=== PATIENT | female | born 1955 | race Caucasian/White ===

== ENCOUNTER → 2023-09-21 10:09 | Outpatient (REF) | payer MEDICARE, SELFPAY | LOC: REG 10:09 | PROVIDERS: ATTENDING PHYSICIAN Internal Medicine | DX: R73.01 Impaired fasting glucose (principal) | CPT/HCPCS: 36415; 83036 ==

== ENCOUNTER → 2024-03-02 13:17 | Outpatient (REF) | payer MEDICARE, SELFPAY | LOC: HWWDC 13:17 | PROVIDERS: ATTENDING PHYSICIAN Internal Medicine | DX: Z12.31 Encounter for screening mammogram for malignant neoplasm of breast (principal) | CPT/HCPCS: 77063; 77067 ==

== ENCOUNTER → 2024-05-12 14:08 | Outpatient (REF) | payer MEDICARE, SELFPAY | LOC: RAD 14:08 | PROVIDERS: ATTENDING PHYSICIAN Internal Medicine; REFERRING PHYSICIAN Physician Assistant Surgical | DX: M54.14 Radiculopathy, thoracic region (principal) | CPT/HCPCS: 72072 ==

== ENCOUNTER → 2024-09-14 13:38 | Outpatient (REF) | payer MEDICARE, SELFPAY | LOC: EMG 13:38 | PROVIDERS: ATTENDING PHYSICIAN Internal Medicine | DX: G56.02 Carpal tunnel syndrome, left upper limb (principal); R20.0 Anesthesia of skin | CPT/HCPCS: 95886; 95909 ==

== ENCOUNTER → 2024-10-27 15:26 | Outpatient (REF) | payer MEDICARE, SELFPAY ==
[2024-11-03 07:12] LABS: HPV, High Risk Not Detected; HPV, High Risk Source Cervical
== END ==
LOC: CPAP 15:26
PROVIDERS: ATTENDING PHYSICIAN Obstetrics & Gynecology
DX: Z12.4 Encounter for screening for malignant neoplasm of cervix (principal)
CPT/HCPCS: 87624

== ENCOUNTER → 2024-11-16 08:32 | Outpatient (REF) | payer MEDICARE, SELFPAY ==
[2024-11-16 09:30] LABS: % Basophils 1.3 % (0-2); % Eosinophils 16.2 % (0-6); % Immature Granulocytes 0.4 % (0-0.5); % Lymphocytes 21.5 % (20.5-51.1); % Monocytes 8.6 % (1.7-9.3); Absolute Basophils 0.1 10^3/uL (0-0.2); Absolute Eosinophils 1.1 10^3/uL (0-0.7); Absolute Lymphocytes 1.5 10^3/uL (1.2-3.4); Absolute Monocytes 0.6 10^3/uL (0.1-0.6); Absolute Neutrophils 3.6 10^3/uL (1.4-6.5); Hematocrit 32.6 % (37.0-47.0); Mean Corp Hgb Conc. 33.7 g/dL (33.0-37.0); Mean Corpuscular Hgb 32.8 pg (27.0-31.0); Mean Corpuscular Volume 97.3 fL (81.0-99.0); Mean Platelet Volume 10.3 fL (7.4-10.4); Nucleated Red Blood Cells % 0 %; Platelet Count 345 10^3/uL (130-400); Red Blood Cell Count 3.35 10^6/uL (4.20-5.40); Red Cell Dist. Width 18.5 % (11.5-14.5); White Blood Cell Count 6.8 10^3/uL (4.8-10.8)
[2024-11-16 10:30] LABS: Glycohemoglobin (HgbA1c) 4.1 % (4.0-5.6)
[2024-11-16 10:54] LABS: ALT (SGPT) 23 U/L (0-35); AST (SGOT) 26 U/L (14-36); Albumin 4.3 g/dl (3.5-5.0); Alkaline Phosphatase 68 U/L (38-126); Blood Urea Nitrogen 20 mg/dl (7-17); Calcium 9.6 mg/dl (8.4-10.2); Carbon Dioxide 26 mmol/L (22-30); Chloride 109 mmol/L (98-107); Glucose 95 mg/dl (70-99); HDL Cholesterol 41 mg/dl; LDL Cholesterol, Calculated 65 mg/dl; Potassium 4.9 mmol/L (3.5-5.1); Sodium 142 mmol/L (135-145); Total Bilirubin 1.2 mg/dl (0.2-1.3); Total Cholesterol 117 mg/dl (50-199); Total Protein 6.5 g/dl (6.3-8.2); Triglyceride 59 mg/dl (10-149); Very Low Density Lipoprotein 11 mg/dl (0-30); eGFR > 60.00
[2024-11-16 11:14] LABS: TSH 1.09 uIU/ml (0.47-4.68)
== END ==
LOC: REG 08:32
PROVIDERS: ATTENDING PHYSICIAN Internal Medicine
DX: R73.01 Impaired fasting glucose (principal); E78.5 Hyperlipidemia, unspecified; E03.9 Hypothyroidism, unspecified
CPT/HCPCS: 36415; 80053; 80061; 83036; 84443; 85025

== ENCOUNTER → 2024-11-28 12:29 | Outpatient (REF) | payer MEDICARE, SELFPAY ==
[2024-11-28 13:17] LABS: Hematocrit 33.5 % (37.0-47.0); Hemoglobin 10.8 g/dL (12.0-16.0); Mean Corp Hgb Conc. 32.2 g/dL (33.0-37.0); Mean Corpuscular Volume 94.1 fL (81.0-99.0); Nucleated Red Blood Cells % 0 %; Platelet Count 314 10^3/uL (130-400); Red Cell Dist. Width 14.9 % (11.5-14.5); Reticulocyte Count 3.6 % (0.4-2.8)
[2024-11-28 14:25] LABS: Iron 66 ug/dl (37-170)
[2024-11-28 14:34] LABS: Total Iron Binding Capacity 348 ug/dl (265-497)
[2024-11-28 15:02] LABS: Ferritin 135.0 ng/ml (11.1-264.0)
[2024-11-28 15:54] LABS: Folate 5.3 ng/ml (2.76-20); Vitamin B12 744 pg/ml (239-931)
== END ==
LOC: REG 12:29
PROVIDERS: ATTENDING PHYSICIAN Hospitalist; FAMILY PHYSICIAN Internal Medicine
DX: D64.9 Anemia, unspecified (principal); Z79.899 Other long term (current) drug therapy
CPT/HCPCS: 36415; 82607; 82728; 82746; 83540; 83550; 85025; 85045

== ENCOUNTER → 2024-12-14 09:30 | Outpatient (REF) | payer MEDICARE, SELFPAY ==
[2024-12-14 10:37] LABS: Hematocrit 33.9 % (37.0-47.0); Hemoglobin 11.0 g/dL (12.0-16.0); Mean Corp Hgb Conc. 32.4 g/dL (33.0-37.0); Mean Corpuscular Volume 97.1 fL (81.0-99.0); Nucleated Red Blood Cells % 0 %; Platelet Count 352 10^3/uL (130-400); Red Cell Dist. Width 16.8 % (11.5-14.5)
[2024-12-14 11:56] LABS: ALT (SGPT) 21 U/L (0-35); AST (SGOT) 23 U/L (14-36); Albumin 4.4 g/dl (3.5-5.0); Alkaline Phosphatase 58 U/L (38-126); Total Protein 6.7 g/dl (6.3-8.2)
== END ==
LOC: REG 09:30
PROVIDERS: ATTENDING PHYSICIAN Internal Medicine; FAMILY PHYSICIAN Internal Medicine
DX: D50.9 Iron deficiency anemia, unspecified (principal); R11.14 Bilious vomiting
CPT/HCPCS: 36415; 80076; 82784; 83516; 85025; 86231

== ENCOUNTER 2024-12-21 06:29 | Day surgery (SDC) | payer MEDICARE, SELFPAY | END 2024-12-21 13:46 | disposition home or self-care (01) | LOC: GI 06:29 | PROVIDERS: ATTENDING PHYSICIAN Internal Medicine | DX: D50.9 Iron deficiency anemia, unspecified (principal); K64.9 Unspecified hemorrhoids; K44.9 Diaphragmatic hernia without obstruction or gangrene | CPT/HCPCS: 43239; 45378; 88305; 88342 ==

== ENCOUNTER → 2024-12-30 11:58 | Outpatient (REF) | payer MEDICARE, SELFPAY | LOC: RAD 11:58 | PROVIDERS: ATTENDING PHYSICIAN Internal Medicine; FAMILY PHYSICIAN Internal Medicine | DX: T14.8XXA Other injury of unspecified body region, initial encounter (principal) | CPT/HCPCS: 74018 ==

== ENCOUNTER → 2025-03-31 10:13 | Outpatient (REF) | payer MEDICARE, SELFPAY ==
[2025-03-31 11:35] LABS: Hematocrit 37.8 % (37.0-47.0); Hemoglobin 12.1 g/dL (12.0-16.0); Mean Corp Hgb Conc. 32.0 g/dL (33.0-37.0); Mean Corpuscular Volume 89.2 fL (81.0-99.0); Nucleated Red Blood Cells % 0 %; Platelet Count 331 10^3/uL (130-400); Red Cell Dist. Width 14.7 % (11.5-14.5)
== END ==
LOC: REG 10:13
PROVIDERS: ATTENDING PHYSICIAN Hospitalist; FAMILY PHYSICIAN Internal Medicine
DX: D64.9 Anemia, unspecified (principal)
CPT/HCPCS: 36415; 85025